=== PATIENT | male | born 1980 | race African-American/Black ===

== ENCOUNTER 2023-08-13 16:56 | Emergency (ER) | payer MEDICAID, OTHER ==
[~2023-08-13] VITALS: Ht 167.6 cm; Wt 83.0 kg
[2023-08-13 17:02] VITALS: O2SAT 100
[2023-08-13] MEDS ORDERED: PSEU120T56 MT (18:35)
[2023-08-13 19:06] VITALS: BP 137/66; PULSE 87; RESP 20; TEMP 98.7
== END 2023-08-13 19:07 | disposition home or self-care (01) ==
LOC: ER 16:56
DX: J06.9 Acute upper respiratory infection, unspecified (principal); Z20.822 Contact with and (suspected) exposure to COVID-19
CPT/HCPCS: 71045; 87426; 87804; 99284